=== PATIENT | female | born 1995 | race Caucasian/White ===

== ENCOUNTER 2017-05-29 04:21 | Emergency (ER) | payer OTHER ==
[2017-05-29 04:31] VITALS: BP 106/73
[2017-05-29] MEDS ORDERED: ALBUTEROL SULFATE 0.083% NEB 2.5 MG/3 ML AMPUL NEB ONE (05:12)
[2017-05-29] MEDS ORDERED: HYDROCODONE/ACETAMINOPHEN 5-325 MG TABLET PO ONE (05:12)
--- NOTE | 2017-05-29 05:14 | ER Document Report ---
ED Respiratory Problem - General Chief Complaint: Shortness Of Breath Stated Complaint: SHORTNESS OF BREATH Time Seen by Provider: 05/29/17 05:09 Mode of Arrival: Ambulatory Information source: Patient TRAVEL OUTSIDE OF THE [place] IN LAST 30 DAYS: No - HPI Patient complains to provider of: Short of breath Onset: This morning Duration: Continuous Quality of pain: Achy Severity: Moderate Pain Level: 3 Context: Smoker Short of Breath: Mild Chest pain/discomfort: Tightness Associated symptoms: Chest pain/discomfort, Short of breath Similar symptoms previously: Yes Recently seen / treated by doctor: No Notes: Patient is a 22-year-old healthy female presenting to the emergency room tonight complaining of shortness of breath that started around 1:00 in the morning, states she feels as though she cannot take a deep breath, as a result she has been taking shallow respirations for the past 4 hours and reports that she now has chest pain from it, she denies any recent travel, no cough, cold or congestion, no trauma, she is a smoker, does not take any oral control, denies any recent periods of immobilization or surgeries, patient does report that she has had the symptoms intermittently in the past but they usually go away after 15-20 minutes - Related Data Allergies/Adverse Reactions: No Known Allergies Allergy (Unverified 05/29/17 05:06) Home Medications: Current Home Medications No Home Medications 05/29/17 [History] Past Medical History - General Information source: Patient - Social History Smoking Status: Current Every Day Smoker Chew tobacco use (# tins/day): No Frequency of alcohol use: None Drug Abuse: None Family History: Reviewed & Not Pertinent Patient has suicidal ideation: No Patient has homicidal ideation: No Renal/ Medical History: Denies: Hx Peritoneal Dialysis Surgical Hx: Negative Review of Systems - Review of Systems Constitutional: No symptoms reported EENT: No symptoms reported Cardiovascular: See HPI Respiratory: See HPI Gastrointestinal: No symptoms reported Genitourinary: No symptoms reported Female Genitourinary: No symptoms reported Musculoskeletal: No symptoms reported Skin: No symptoms reported Hematologic/Lymphatic: No symptoms reported Neurological/Psychological: No symptoms reported -: Yes All other systems reviewed and negative Physical Exam - Vital signs Vitals: Temp Pulse Resp BP Pulse Ox 97.3 F 76 18 106/73 100 05/29/17 04:25 05/29/17 04:25 05/29/17 04:25 05/29/17 04:25 05/29/17 04:25 Interpretation: Normal - General General appearance: Appears well, Alert - HEENT Head: Normocephalic, Atraumatic Eyes: Normal Pupils: PERRL - Respiratory Respiratory status: No respiratory distress Chest status: Tender - Tenderness to palpate over midsternal Breath sounds: Normal Chest palpation: Normal - Cardiovascular Rhythm: Regular Heart sounds: Normal auscultation Murmur: No - Abdominal Inspection: Normal Distension: No distension Bowel sounds: Normal Tenderness: Nontender Organomegaly: No organomegaly - Back Back: Normal, Nontender - Extremities General upper extremity: Normal inspection, Nontender, Normal color, Normal ROM , Normal temperature General lower extremity: Normal inspection, Nontender, Normal color, Normal ROM , Normal temperature, Normal weight bearing. No: Rizwana's sign - Neurological Neuro grossly intact: Yes Cognition: Normal Orientation: AAOx4 [place] Coma Scale Eye Opening: Spontaneous [place] Coma Scale Verbal: Oriented [place] Coma Scale Motor: Obeys Commands [place] Coma Scale Total: 15 Speech: Normal Motor strength normal: LUE, RUE, LLE, RLE Sensory: Normal - Psychological Associated symptoms: Normal affect, Normal mood - Skin Skin Temperature: Warm Skin Moisture: Dry Skin Color: Normal Course - Re-evaluation Re-evalutation: 05/29/17 05:46 Patient reports feeling much better after Motrin and albuterol treatment, she is moving much more air, symptoms likely related to her being a smoker, with possible viral upper respiratory illness, x-ray and EKG are unremarkable and were discussed with patient at bedside, she will be discharged with albuterol inhaler and advised to quit smoking, follow-up with a primary care provider or return if symptoms worsen, patient acknowledges understanding and agreement with this plan - Vital Signs Vital signs: Temp Pulse Resp BP Pulse Ox 97.3 F 76 18 106/73 100 05/29/17 04:25 05/29/17 04:25 05/29/17 04:25 05/29/17 04:25 05/29/17 04:25 - Diagnostic Test Radiology reviewed: Image reviewed, Reports reviewed - EKG Interpretation by Me EKG shows normal: Sinus rhythm Rate: Normal Rhythm: NSR Discharge - Discharge Clinical Impression: Reactive airway disease Qualifiers: Asthma severity: mild Asthma persistence: intermittent Asthma complication type : with acute exacerbation Qualified Code(s): J45.21 - Mild intermittent asthma with (acute) exacerbation Condition: Stable Disposition: HOME, SELF-CARE Instructions: Reactive Airway Disease ([facility]) Additional Instructions: Follow up with your primary care provider in one to 2 days. Return to the emergency room immediately if symptoms worsen or any additional concerns. Forms: Smoking Cessation Education, Return to Work
--- NOTE | 2017-05-29 05:40 | RADIOLOGY REPORT (SQ) ---
EXAM DESCRIPTION: CHEST PA/LAT CLINICAL HISTORY: 22 years, Female, sob COMPARISON: None. NUMBER OF VIEWS: 2 TECHNIQUE: Routine chest radiograph technique. LIMITATIONS: None. FINDINGS: Cardiac size and pulmonary vasculature are normal. Lungs are clear. No pleural effusions or pneumothorax. No hilar or mediastinal lymphadenopathy. Bones are normal. IMPRESSION: Normal chest radiographs. 2011 [employer]- All Rights Reserved
[2017-05-29] MEDS ORDERED: ALBUTEROL SULFATE HFA (90 MCG/PUFF) 8 GM MDI (1 MDI/ER DISP) IH SCH (06:00)
--- NOTE | 2017-05-29 10:59 | EKG REPORT ---
SEVERITY:- NORMAL ECG - SINUS RHYTHM : Confirmed by: Brii Guzman MD 29-May-2017 10:57:35
== END 2017-05-29 05:57 | disposition home or self-care (01) ==
LOC: ER 04:21
DX: J45.21 Mild intermittent asthma with (acute) exacerbation (principal); R06.02 Shortness of breath; F17.200 Nicotine dependence, unspecified, uncomplicated
CPT/HCPCS: 93005; 94640; 99285; 71020; 93010; J3490